=== PATIENT | female | born 1990 | race Caucasian/White ===

== ENCOUNTER 2021-02-02 10:11 | Emergency (ER) | payer OTHER, SELFPAY ==
--- NOTE | ~2021-02-02 | XR_ITS ---
EXAMINATION: XR chest 1V portable DATE: 02/02/2021 11:39 INDICATION: Chest pain. Anxiety. TECHNIQUE: A single frontal view of the chest was obtained. COMPARISON: Chest 2 views 05/09/2011, CT abdomen and pelvis 07/20/2015 FINDINGS: The chest demonstrates clear lungs without pneumonia, pleural effusion, or pneumothorax. Th e heart size is normal. IMPRESSION: 1. No acute cardiopulmonary disease. Reviewed, dictated and finalized at location A. [employer]
[2021-02-02 10:21] VITALS: BP 129/75; PULSE 107; RESP 18; TEMP 36.7; O2SAT 100
--- NOTE | 2021-02-02 11:19 | ED.GENADULT ---
HPI - General Adult General Chief complaint: Anxiety Stated complaint: anxiety attack Time Seen by Provider: 02/02/21 10:28 Source: patient Mode of arrival: ambulatory Limitations: no limitations History of Present Illness HPI narrative: Patient a 30-year-old female who presents with chest tightness and anxiety that have been present since the weekend patient with longstanding history of anxiety patient has as needed anxiety medicine that she rarely takes. Patient on arrival is very anxious and tearful. Patient denies sick contacts URI symptoms or other complaints. I will Related Data Home Medications Medication Instructions Recorded Confirmed oxybutynin chloride 02/02/21 02/02/21 Allergies Allergy/AdvReac Type Severity Reaction Status Date / Time No Known Allergies Allergy Verified 02/02/21 10:26 Review of Systems Review of Systems: All systems reviewed & are unremarkable except as noted in HPI and below PMFSH Past Medical History Medical History Anxiety Family History Family History (Updated 06/29/16 @ 23:19 by DOCTOR UNKNOWN) Father Hypertension Family history of diabetes mellitus in first degree relative Social History Social History Second hand tobacco smoke exposure: Yes Alcohol intake: current Gender identity (if verbalized by the patient): Female Exam Narrative: Exam Narrative: GENERAL: Well-appearing, well-nourished, and in no acute distress. HEAD: Normocephalic, atraumatic. EYES: PERRLA and EOMI. ENT: Nares clear, no rhinorrhea or epistaxis. Mucous membranes moist. CHEST: Clear to auscultation. No respiratory distress. No wheezes rales or rhonchi HEART: Regular rate and rhythm. No murmur heard. Normal peripheral pulses. ABDOMEN: Soft, nontender, nondistended EXTREMITIES: Normal range of motion. No edema. SKIN: Warm, dry, no rash. NEURO: No focal deficits. Alert and oriented x3. PSYCH: Acutely anxious Course Course Emergency Course: Patient in the room no distress aware of case findings treatment plan has close follow-up with primary care will be discharged home with mother with plans for addressing her anxiety patient was reassured and evaluated with no high risk changes felt appropriate for outpatient reevaluation provided with reasons to return ABCs intact vital signs stable Vital Signs Vital signs: Vital Signs Temperature 98.1 F 02/02/21 10:21 Pulse Rate 107 H 02/02/21 10:21 Respiratory Rate 18 02/02/21 10:21 Blood Pressure 129/75 02/02/21 10:21 Pulse Oximetry 100 02/02/21 10:21 Temperature 98.1 F 02/02/21 10:21 Pulse Rate 107 H 02/02/21 10:21 Respiratory Rate 18 02/02/21 10:21 Blood Pressure 129/75 02/02/21 10:21 Pulse Oximetry 100 02/02/21 10:21 Medical Decision Making MDM Narrative Medical decision making narrative: Patient room no distress will be discharged home Vital Signs Vital Signs: Vital Signs Temperature 98.1 F 02/02/21 10:21 Pulse Rate 107 H 02/02/21 10:21 Respiratory Rate 18 02/02/21 10:21 Blood Pressure 129/75 02/02/21 10:21 Pulse Oximetry 100 02/02/21 10:21 Temperature 98.1 F 02/02/21 10:21 Pulse Rate 107 H 02/02/21 10:21 Respiratory Rate 18 02/02/21 10:21 Blood Pressure 129/75 02/02/21 10:21 Pulse Oximetry 100 02/02/21 10:21 Lab Data Labs: Lab Results 02/02/21 Range/Units 11:22 Urine Color Yellow (Yellow) Urine Appearance Cloudy H (Clear) Urine pH 5.0 (5.0-9.0) Ur Specific Al[place] 1.031 (1.001-1.035) Urine Protein 2+ H (Negative) mg/dL Urine Glucose (UA) Negative (Negative) mg/dL Urine Ketones 2+ H (Negative) mg/dL Ur Blood (Man) Negative (Negative) Urine Nitrate Negative (Negative) Urine Bilirubin Negative (Negative) Urine Urobilinogen Negative (<2.0) mg/dL Leukocyte Esterase Rfl Trace H (Negative)
[2021-02-02] MEDS: LORazepam (*CRX) 1 MG TABLET PO (11:20)
[2021-02-02 11:44] LABS: Add Urine Microscopic? YES; Appearance Urine Cloudy (Clear); Bilirubin Urine Negative (Negative); Blood Urine Negative (Negative); Color Urine Yellow (Yellow); Glucose Urine UA Negative (Negative); Ketones Urine 2+ mg/dL (Negative); Leukocyte Esterase Ur Trace LEU/UL (Negative); Mucus Urine Heavy /lpf; Nitrate Urine Negative (Negative); Protein Urine 2+ mg/dL (Negative); Squamous Epithelial Cell Urine Many /hpf (Few); Urobilinogen Urine Negative mg/dL (<2.0); WBC Urine 0-3 /hpf
[2021-02-02 11:50] LABS: Specific Grav Ur 1.031 (1.001-1.035)
== END 2021-02-02 13:00 | disposition home or self-care (01) ==
PROVIDERS: Emergency Medicine Emergency Medical Services; Emergency Provider Emergency Medicine; PCP Family Medicine
DX: F41.9 Anxiety disorder, unspecified (principal); Z77.22 Contact with and (suspected) exposure to environmental tobacco smoke (acute) (chronic)
CPT/HCPCS: 71045; 81001; 81025; 99283; A9270

== ENCOUNTER 2025-03-09 10:05 | Outpatient (CLI) | payer OTHER, SELFPAY ==
--- NOTE | ~2025-03-09 | MMUS_ITS ---
EXAMINATION: US breast BI complete, MM diagnostic wilfred BI w kenny HISTORY: Dense breasts. TECHNIQUE: Additional 3-D tomosynthesis images of the breasts were performed and synthetic 2-D images were generated. CAD analysis was submitted and interpreted. High resolution bilateral complete breas t ultrasound was performed. COMPARISON: 01/16/2024 BREAST PARENCHYMAL COMPOSITION: Dense: The breasts are extremely dense, which lowers the sensitivity of mammography. FINDINGS: MAMMOGRAPHIC FINDINGS: There are no suspicious masses, calcifications or architectural distortion in either breast to sugges t malignancy. There is a tissue marker in the upper outer quadrant of the right breast, middle third. ULTRASOUND: Complete US of all 4 quadrants of the breast/s and retroareolar region was reviewed. Right breast: At 1:00, 2 cm from the nipple there is an oval circumscribed 11 mm hypoechoic mass with out internal vascularity or posterior features. At 2:00, 3 cm from the nipple there is a septated com plicated 8 mm cyst. At 9:00, 1 cm from the nipple there is 2 mm cyst. Left breast: At 1:00, 1 cm from the nipple there is a heterogeneous hypoechoic oval solid parallel or iented 4 mm mass without posterior features or internal vascularity. At 9:00, 4 cm from the nipple th ere is a 3 mm cyst. At 9:00, 3 cm from the nipple there is a cluster of cysts. IMPRESSION: 1. Probable benign bilateral breast masses identified by ultrasound. 2. Recommend 6 month follow-up limited bilateral breast ultrasound BI-RADS category 3, probably benign findings. Reviewed, dictated and finalized at location A. IMPRESSION: 1. Probable benign bilateral breast masses identified by ultrasound. 2. Recommend 6 month follow-up limited bilateral breast ultrasound BI-RADS category 3, probably benign findings.
--- OUTSIDE RECORDS SUMMARY | 2025-03-09 11:13 | XMS_ITS | Clinical Summary ---
Author Organization [facility] Address [address] [place] [address] Care Team Providers Care Research [facility] Director Name Role Phone Teresa Del Rio MD Primary Care Provider + Allergies No known active allergies Medications ondansetron 4 MG tabletIndicatio ns:Nausea Take 1-2 tablets every 6-8 hours as needed for nausea 30 tablet 2 1 Active Additional Information Patient not taking.Reported on 12/25/2023 ALPRAZolam (XANAX) 0.25 MG tabletIndicatio ns:Anxiety Take 1 tablet (0.25 mg total) by mouth 3 (three) times daily as needed. 30 tablet 1 3 Active NON FORMULARY Occasionally takes oshwaganda (sp?) Active oxybutynin (DITROPAN) 5 MG tabletIndicatio ns:Hyperhidrosi s Take 1 tablet (5 mg total) by mouth 2 (two) times daily. 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 Resolved Problems Problem Noted Date Diagnosed Date Resolved Date Cervical cancer screening 05/07/2018 Flu vaccine need 01/14/2017 08/12/2020 Encounter for preventive health examination 01/03/2017 08/12/2020 Immunizations Name Administration Dates Next Due Influenza (Generic) 01/14/2017 Influenza Adult (Generic) 01/14/2017 MODERNA COVID-19 (12+) MRNA, LNP-S, PF, 100 MCG/ 0.5 ML DOSE 03/28/2021,02/28/2021 Pneumococcal (Pneumovax 23) 05/07/2018 Tdap (Generic) 01/14/2017 Family History Medical History Relation Comments Hypertension Father Cancer Maternal Uncle 1 Skin cancer Maternal Uncle 2 in his 20s Skin cancer Maternal Uncle 3 in his 50s Relation Status Comments Father Maternal Uncle 1 Maternal Uncle 2 Alive Maternal Uncle 3 Alive Social History Tobacco Use Types Packs/Day Years Used Date Smoking Tobacco: Every Day Cigarettes 0.5 12 Smokeless Tobacco: Never Tobacco Cessation:Ready to Q uit: Not Asked; Counseling Given: Yes Comments:counseling by Dr Fuentes Alcohol Use Standard Drinks/Week Comments Not Currently 0 (1 standard drink = 0.6 oz pur e alcohol) rarely Comments No Sex and Gender Information Value Date Recorded Sex Assigned at Not on file Legal Sex Female 9:15 PM CDT Gender Identity Not on file Sexual Orientation Not on file Last Filed Vital Signs Vital Sign Reading Time Taken Comments Blood Pressure 124/80 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 Pulse 83 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 Temperature 36.6 C (97.9 F) 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 Respiratory Rate 16 03/06/2023 8:35 AM CDT Oxygen Saturation 98% 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 Inhaled Oxygen Concentration - - Weight 57.2 kg (126 lb) 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 Height 167.6 cm (5' 6 ) 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 Body Mass Index 20.34 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 Plan of Treatment Health Maintenance Due Date Last Done Comments Hepatitis B Vaccines (1 of 3 - 19+ 3-dose series) 2007 Pneumococcal Vaccine: Pediatrics (0 to 5 Years) and At-Risk Patients (6 to 64 Years) (2 of 2 - PCV) 05/07/2019 05/07/2018 Cervical Cancer Screening Pap Smear (Age 30 to 64) Every 3 Years 02/14/2024 02/13/2021 Annual Physical 03/06/2024 03/06/2023, 01/31, 02/13/2021, Additional history exists COVID-19 Vaccine ( season) 2024 03/28/2021, 02/28/2021 PHQ-2 (Physician [place]) 12/02/2024 Cervical Cancer Screening Pap with HPV Testing (Age 30 to 64) Every 5 Years 02/13/2026 02/13/2021 Cervical Cancer Screening with HPV 02/13/2026 DTaP, Tdap and Td Vaccines (2 - Td or Tdap) 01/14/2027 01/14/2017 Hepatitis C Completed 07/17/2021 HPV Vaccines Aged Out No longer eligi ble based on patient's age to complete this topic Meningococcal B Vaccine Aged Out No l onger eligible based on patient's age to complete this topic Meningococcal Vaccine Aged Out No triny robert eligible based on patient's age to complete this topic RSV Immunizations Under 20 Months Aged Out No longer eligible based on patient's age to complete this topic Procedures Procedure Name Priority Date/Time Associated Diagnosis Comments HEPATITIS C ANTIBODY W/RFX TO HCV RNA Routine 07/17/2021 11:15 AM CDT Need for hepatitis C screening test HPV MRNA E6/E7 W/ RFLX GENOTYPES Routine 02/13/2021 1:33 PM CDT CYTOPATH CERV/VAG THIN LAYER Routine 02/13/2021 1:33 PM CDT Encounter for Papanicolaou smear for cervical cancer screening from Last 3 Months or Most Recently Relevant to Health Maintenance Results * HEPATITIS C ANTIBODY W/RFX TO HCV RNA ([facility] ONLY) (07/17/2021 11:15 AM CDT) HEPATITIS C AB NON-REACTI VE NON-REACT JAN [facility] SIGNAL TO CUTOFF 0.01 <[address] [facility] Comment: HCV antibody was non-reactive. There is no laboratory evidence of HCV infection. In most cases, no further action is required. However, if recent HCV exposure is suspected, a test for HCV RNA (test code 72440) is suggested. For additional information please refer to http://education.[employer]/faq/OWT45e3 (This link is being provided for informational/ educational purposes only.) 07/17/2021 11:1 5 AM CDT 07/18/2021 7:50 AM CDT Trev Fuentes MD LABORATORY Final Res ult Performing Organization Address [facility]/ZIP Co de Phone Number [facility] [place] [facility] [address] [place] [address] * HPV MRNA E6/E7 W/ RFLX GENOTYPES (02/13/2021 1:33 PM CDT) Pathologist [facility] HPV MRNA E6/E7 Not Detected Not Detected [facility] [place] Comment: Methodology: Steam Setter-Mediated Amplification This assay detects E6/E7 viral messenger RNA (mRNA) from 14 high-risk HPV types (16,18,31,33,35,39,45,51,52,56,58,59,66,68). The analytical performance characteristics of this assay have been determined by [facility]. The modifications have not been cleared or approved by the FDA. This assay has been validated pursuant to the CLIA regulations and is used for clinical purposes. For additional information, please refer to http://Dealflicks.[employer]/faq/UEG247v8 (This link if provided for information/ educational purposes only.) 02/13/2021 1:33 PM CDT 02/14/2021 7:16 AM CDT Trev Fuentes MD PATHOLOGY/CYTOLOGY ORDERA BLES Final Result Performing Organization Address [facility]/ZIP Co de Phone Number [facility] - [place]O [facility] [address] [place] [address] * Cytopath Cerv/Vag Thin Layer (02/13/2021 1:33 PM CDT) Pathologist [facility] CLINICAL INFORMATION: REGULAR MENSES [facility] Clinical Information: 2 WEEKS AGO [facility] Date of Last Pap INFORMATION NOT PROVIDED [facility] Previous Biopsy? INFORMATION NOT PROVIDED [facility] SOURCE (QST) Cervix, Endocervix [facility] STATEMENT OF ADEQUACY: [facility] Comment: Satisfactory for evaluation. Endocervical/transformation zone component present. PAP INTERPRETATION/RESU LTS Negative for intraepithelial lesion or malignancy. [facility] COMMENT: Tip of collection device in vial [facility] SOLDERER [employer]REL RIBS [facility] Comment: JACK, CT(ASCP) CT screening location: [place] [address] [address] [place] [id number] COMMENT: [facility] Comment: EXPLANATORY NOTE: The Pap is a screening test for cervical cancer. It is not a diagnostic test and is subject to false negative and false positive results. It is most reliable when a satisfactory sample, regularly obtained, is submitted with relevant clinical findings and history, and when the Pap result is evaluated along with historic and current clinical information. 02/13/2021 1:33 PM CDT 02/14/2021 7:16 AM CDT Trev Fuentes MD PATHOLOGY/CYTOLOGY ORDERA BLES Final Result [facility] - [place] ORDERS [facility] [address] [address] [place] [id number] from Last 3 Months or Most Recently Relevant to Health Maintenance Insurance [place] Care Teams Research Center Director Relationship Specialty Start Date End Date Teresa Del Rio MD [address] [address] PCP - General FAMILY PRACTICE 09/18/24
== END 2025-03-09 10:06 | disposition home or self-care (01) ==
LOC: ANHIMG 10:06
PROVIDERS: PCP Physician Assistant; Visit Provider Physician Assistant
DX: R92.332 Mammographic heterogeneous density, left breast (principal); R92.8 Other abnormal and inconclusive findings on diagnostic imaging of breast
CPT/HCPCS: 76641; 77062; 77066; G0279

== ENCOUNTER 2025-03-11 10:27 | Emergency (ER) | payer OTHER, SELFPAY ==
--- NOTE | 2025-03-11 10:29 | ED_ITS ---
HPI - Eye Problem General Chief complaint: Eye Problems Stated complaint: left eye red,discharge Time Seen by Provider: 03/11/25 10:28 Source: patient Mode of arrival: ambulatory Limitations: no limitations History of Present Illness HPI Narrative: Ivon is a 34-year-old female patient presenting to the clinic today with complaints of left eye redness and discharge x1 day. She reports she woke up this morning with her eye matted shut. States that is goopy, red, and itchy. Works in a long term setting. Denies any URI symptoms. Denies any visual changes. Related Data Home Medications ?Medication ?Instructions ?Recorded ?Confirmed ?Last Taken ?Type oxybutynin chloride 5 mg tablet 02/02/21 02/02/21 Unknown History Allergies Allergy/AdvReac Type Severity Reaction Status Date / Time No Known Allergies Allergy Verified 03/11/25 10:39 Review of Systems Review of Systems: Pertinent positives per HPI. Patient denies any fever, chills, rash, headache, visual changes, dizziness, cough, runny nose, sore throat, shortness of breath, chest pain, palpitations, nausea, vomiting, diarrhea, constipation, abdominal pain, or any urinary issues. PMFSH Past Medical History Medical History Anxiety Family History Family History Father Hypertension Family history of diabetes mellitus in first degree relative Social History Social History Second hand tobacco smoke exposure: Yes Alcohol intake: current Gender identity (if verbalized by the patient): Female Comments At the time of my signature, I reviewed and agree with the nursing past medical, surgical, social, and family history. There is no relevant family history pertinent to the patient complaint. Exam Narrative: General: Well-developed, well nourished, in no apparent distress Head: Normocephalic, atraumatic Eyes: Pupils equally round and reactive to light bilaterally, EOM intact, right sclera and conjunctive clear, no discharge, lids normal, left sclera and conjunctiva injected with yellow mucopurulent discharge Ears: TMs intact and clear, ear canals clear, no drainage, grossly hearing normal. Nose: Nares patent, no discharge, no inflammation, no sinus tenderness. Mouth: Oropharynx without lesions or masses, good dentition, MMM. Neck: Supple, trachea midline, no enlargement of anterior or posterior cervical nodes, no thyroid masses or goiter palpable. Cardio: Regular rate and rhythm, s1 and s2 normal, no murmur appreciated. Resp: Clear to auscultation bilaterally anteriorly and posteriorly, no rhonchi, rales, wheezing or rubs Course Course Emergency Course: Portions of this record may have been created with voice recognition software. Level of Care: Express Care Visit Vital Signs Vital signs: Vital Signs Temperature 36.7 C 03/11/25 10:36 Pulse Rate 77 03/11/25 10:36 Respiratory Rate 14 03/11/25 10:36 Blood Pressure 119/70 03/11/25 10:36 Pulse Oximetry 100 03/11/25 10:36 Oxygen Delivery Room Air 03/11/25 10:36 Temperature 36.7 C 03/11/25 10:36 Pulse Rate 77 03/11/25 10:36 Respiratory Rate 14 03/11/25 10:36 Blood Pressure 119/70 03/11/25 10:36 Pulse Oximetry 100 03/11/25 10:36 Oxygen Delivery Room Air 03/11/25 10:36 Vital signs reviewed MDM - Eye Problem MDM Narrative Medical decision making narrative: At the time of visit patient is resting comfortably on the exam table. Patient appears to be nontoxic. Plan: I suspect patient has left acute conjunctivitis. Prescription for tobramycin eyedrops was sent to the pharmacy. Supportive measures were discussed with the patient and they voiced understanding discharge instructions and agrees to treatment plan. Return precautions reviewed Differential Diagnosis Differential diagnosis: Likely corneal abrasion, conjunctivitis, acute iritis, hyphema, periorbital cellulitis, subconjunctival hemorrhage, glaucoma, corneal ulcer and ruptured globe Discharge Plan Discharge Clinical Impression: Acute conjunctivitis of left eye Qualifiers: Acute conjunctivitis type: bacterial Qualified Code(s): H10.32 - Unspecified acute conjunctivitis, left eye Patient Disposition: Home Condition: Stable Instructions: Antibiotic Form, Conjunctivitis (ED) Additional Instructions: Conjunctivitis is considered contagious for 24 hours while on the antibiotic. Practice good hand washing techniques Avoid touching eyes Instill eyedrops as prescribed May use warm moist washcloth to help remove eye discharge If eyes are matted shut-do not pry eyes open-use a warm moist cloth to loosen matting and wipe matter away from eye May take Tylenol/Motrin as needed for pain or fever May take Benadryl as needed for itching Follow-up with your PCP in 3-5 days if symptoms persist or sooner if they worsen Go to the emergency room if you develop any fever that is not controlled by Tylenol or Motrin, loss of vision, eye pain, increase eye swelling,visual changes, headache, confusion, lethargy, weakness, chest pain, or shortness of breath. Patient Language: Tamazight Prescriptions: New tobramycin 0.3 % drops 1 drp LEFT EYE Q4H 7 Days Qty: 5 0RF No Action oxybutynin chloride 5 mg tablet Follow-up/Referrals: Sandrine,WILVER Gilbert [Primary Care Provider] - Time of Disposition: 10:40 Quality NIHSS Nursing Documentation ED NIHSS nursing documentation: reviewed/agree
[2025-03-11 10:36] VITALS: BP 119/70; PULSE 77; RESP 14; TEMP 36.7; O2SAT 100
== END 2025-03-11 10:46 | disposition home or self-care (01) ==
PROVIDERS: Emergency Provider Nurse Practitioner Family; PCP Physician Assistant
DX: H10.32 Unspecified acute conjunctivitis, left eye (principal)
CPT/HCPCS: 99213; G0463

== ENCOUNTER 2025-05-10 15:03 | Emergency (ER) | payer OTHER, SELFPAY ==
[2025-05-10 15:11] VITALS: BP 105/64; PULSE 67; RESP 12; TEMP 36.5; O2SAT 100
--- NOTE | 2025-05-10 15:30 | ED.BACK ---
HPI - Back Pain/Injury General Chief Complaint: Back Pain/Injury Stated Complaint: back pain Time Seen by Provider: 05/10/25 15:30 Source: patient, RN notes reviewed and old records reviewed Mode of arrival: ambulatory Limitations: no limitations History of Present Illness HPI Narrative: 34-year-old female presents to the [facility] with 5 day history of low back pain. Patient states that she twisted wrong and felt a pop. States when she lays down it feels better, standing, twisting and moving makes it worse. Has taken ibuprofen. Denies any retention of bowel or bladder. Denies any loss of bowel bladder. No urinary symptoms. No CVA tenderness. Denies abdominal pain.. Walks with a normal gait. No numbness or tingling in extremities. Onset (ago): day(s) (5) Related Data Home Medications ?Medication ?Instructions ?Recorded ?Confirmed ?Last Taken ?Type oxybutynin chloride 5 mg tablet 02/02/21 02/02/21 Unknown History Allergies Allergy/AdvReac Type Severity Reaction Status Date / Time No Known Allergies Allergy Verified 05/10/25 15:21 Review of Systems Review of Systems: All systems reviewed & are unremarkable except as noted in HPI and below Constitutional: Constitutional: Reports no additional constitutional complaints ENT: Reports system reviewed and no additional complaints, except as documented Cardiovascular: Cardiovascular: Reports no additional cardiovascular complaints, Denies chest pain and Denies dyspnea Respiratory: Respiratory: Reports no additional respiratory complaints, Denies chest congestion, Denies cough and Denies dyspnea Musculoskeletal: Musculoskeletal: Reports as per HPI Integumentary/Breasts: Skin/Breast: Reports system reviewed and no additional complaints, except as [facility]u [facility] Past Medical History Medical History Anxiety Family History Family History Father Hypertension Family history of diabetes mellitus in first degree relative Social History Social History Second hand tobacco smoke exposure: Yes Alcohol intake: current Gender identity (if verbalized by the patient): Female Comments At the time of my signature, I reviewed and agree with the nursing past medical, surgical, social, and family history. There is no relevant family history pertinent to the patient complaint. Exam Const: General: cooperative, healthy appearing, comfortable, no acute distress, well developed, alert and well nourished Nutritional Appearance: well nourished Orientation/consciousness: patient oriented x3 Limitations: no limitations HENMT: Head: normal to inspection Eyes: General: appearance normal, both eyes and all related structures Alignment and Position: alignment normal Neck: Neck: normal visual inspection, full ROM, no lymphadenopathy and no meningeal signs Chest: Chest palpation & inspection: normal inspection of the chest Resp: Effort & Inspection: normal respiratory effort and able to speak in complete sentences Auscultation: clear to auscultation bilaterally, no crackles, no rales, no rhonchi and no wheezes Cardio: Rate: regular rate GI: GI Palp: No abdominal tenderness : General: Yes no CVA tenderness Back/Spine/Pelvis: Back: No erythema, No warmth, No ecchymosis and back tenderness Cervical Spine: normal cervical lordosis, cervical ROM normal and No Cervical spine tenderness Thoracic/Lumbar Spine: paraspinal muscle tenderness bilaterally in the lower lumbar, No thoracic spinal tenderness and No lumbar spinal tenderness Skin: General skin exam: normal color and no rashes or lesions noted Rashes: no rashes Neuro: General: patient oriented x3, gait normal, moves all extremities and no meningeal signs Cognition (Neuro): normal cognition Speech: normal speech Gait exam (Neuro): Normal gait present Extrem: General: normal to inspection, full ROM, capillary refill normal and normal gait Psych: Appearance: grossly normal and well kempt Mental Status: mental status grossly normal Speech and movement: Normal speech and movement present and Clear speech present Affect: normal affect Attitude: cooperative Course Course Level of Care: Express Care Visit Vital Signs Vital signs: Vital Signs Temperature 97.7 F 05/10/25 15:11 Pulse Rate 67 05/10/25 15:11 Respiratory Rate 12 05/10/25 15:11 Blood Pressure 105/64 05/10/25 15:11 Pulse Oximetry 100 05/10/25 15:11 Oxygen Delivery Room Air 05/10/25 15:11 Temperature 97.7 F 05/10/25 15:11 Pulse Rate 67 05/10/25 15:11 Respiratory Rate 12 05/10/25 15:11 Blood Pressure 105/64 05/10/25 15:11 Pulse Oximetry 100 05/10/25 15:11 Oxygen Delivery Room Air 05/10/25 15:11 Reviewed MDM - Back Pain/Injury MDM Narrative Medical decision making narrative: Patient sitting in exam room. Patient is nontoxic, vitals are stable. Patient presents 5 day history of low back pain. Patient denies any loss of bowel or bladder. No midline tenderness. Walking with normal gait. Discussed doing an x-ray. But without injury x-rays was only look at bone. Discussed signs and symptoms proceed to the emergency room and stressed importance of following up with primary care provider Patient appropriate for outpatient treatment with close follow-up Discharge instructions reviewed with patient, as well as provided in writing per nursing staff. The instructions also include specific and strict return/GO TO THE ER as well as f/u information. All questions have been answered, and the patient deny any further questions with discharge and discharge plan. Some parts of this dictation were generated by voice recognition software and may contain typographical and/or grammatical inaccuracies. Differential Diagnosis Differential diagnosis: Likely lumbar radiculopathy, sciatica, strain of lumbar region, renal colic, pyelonephritis and thoracic back pain Critical Care Time Critical Care Time Critical Care Time: No Discharge Plan Discharge Clinical Impression: Strain of lumbar region Qualifiers: Encounter type: initial encounter Qualified Code(s): S39.012A - Strain of muscle, fascia and tendon of lower back, initial encounter Patient Disposition: Home Condition: Stable Instructions: Low Back Strain (ED), Lower Back Exercises (ED) Additional Instructions: Take ibuprofen as directed to decrease inflammation and to help pain. Take Baclofen (muscle relaxer) as directed. Do not drink, drive, operate machinery, or do anything dangerous while taking this medication Exercise:Combine aerobic exercise, like walking or swimming, with specific exercises to keep the muscles in your back and abdomen strong and flexible. Proper Lifting:Be sure to lift heavy items with your legs, not your back. Do not bend over to pick something up. Keep your back straight and bend at your knees. Weight:Maintain a healthy weight. Being overweight puts added stress on your lower back. Avoid Smoking:Both the smoke and the nicotine cause your spine to age faster than normal. Proper Posture:Good posture is important for avoiding future problems. A therapist can teach you how to safely stand, sit, and lift. Use warm moist heat to help with pain. Using topical such as Biofreeze, Jose-Cano or Aspercreme can also help Follow up with Primary provider in 2-3 days, This may become a chronic condition and they will be the one to help manage your pain and order additional testing. Go to the nearest ER if you develop problems with bladder/bowel function, weakness or loss of feeling in one or both of your legs. Patient Language: Mont[place]erratian Prescriptions: New baclofen 10 mg tablet 10 mg PO TID PRN (Reason: muscle pain) Qty: 10 0RF ibuprofen 600 mg tablet 600 mg PO TID PRN (Reason: fever or pain) Qty: 30 0RF lidocaine [DermacinRx Lidocan] 5 % adhesive patch,medicated 1 patch topical DAILY Qty: 15 0RF Rx Instructions: leave on most painful area for up to 12 hrs No Action oxybutynin chloride 5 mg tablet Follow-up/Referrals: UNKNOWN,DOCTOR [Primary Care Provider] - Stand Alone Forms: Work/School Release IP Time of Disposition: 15:48
== END 2025-05-10 15:54 | disposition home or self-care (01) ==
PROVIDERS: Emergency Provider Nurse Practitioner
DX: S39.012A Strain of muscle, fascia and tendon of lower back, initial encounter (principal); X50.1XXA Overexertion from prolonged static or awkward postures, initial encounter
CPT/HCPCS: 99213; G0463

== ENCOUNTER 2025-05-19 18:15 | Emergency (ER) | payer OTHER, SELFPAY ==
--- NOTE | 2025-05-19 18:16 | ED_ITS ---
HPI - Back Pain/Injury General Chief Complaint: Back Pain/Injury Stated Complaint: back pain Time Seen by Provider: 05/19/25 18:16 Source: patient Mode of arrival: ambulatory Limitations: no limitations History of Present Illness HPI Narrative: Patient is a 35-year-old female who presents with low back pain. Patient was initially here 9 days ago with initial injury being 14 days ago. Patient states she is improving with the ibuprofen, baclofen and lidocaine patches that were given to her last visit. Patient states she tripped over her dog today re- injuring back. 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 Denies any numbness, tingling or weakness down her extremities. Denies any loss of bowel or bladder. Requesting work note. Related Data Home Medications ?Medication ?Instructions ?Recorded ?Confirmed ?Last Taken ?Type oxybutynin chloride 5 mg tablet 02/02/21 02/02/21 Unknown History Allergies Allergy/AdvReac Type Severity Reaction Status Date / Time No Known Allergies Allergy Verified 05/10/25 15:21 Review of Systems Review of Systems: All systems reviewed & are unremarkable except as noted in HPI and below Constitutional: Constitutional: Denies body ache(s), Denies chills, Denies fatigue, Denies fever(s), Denies headache(s), Denies malaise and Denies weakness Eyes: Eyes: Denies blurry vision, Denies irritation and Denies loss of vision ENT: Denies otalgia, Denies headache(s), Denies nasal discharge, Denies sinus pain and Denies sore throat Cardiovascular: Cardiovascular: Denies chest pain, Denies irregular heart rhythm and Denies dyspnea Respiratory: Respiratory: Denies dyspnea Gastrointestinal: Gastrointestinal: Denies abdominal pain, Denies melena, Denies hematochezia, Denies diarrhea, Denies nausea and Denies vomiting Musculoskeletal: Musculoskeletal: Reports back pain, Denies myalgias and Denies arthralgias Integumentary/Breasts: Skin/Breast: Denies pruritus and Denies rash Neurologic: Denies headache(s), Denies loss of vision and Denies weakness Psychiatric: Psychiatric: Reports no additional psychiatric complaints Endocrine: Endocrine: Denies fatigue PMFSH Past Medical History Medical History Anxiety Family History Family History Father Hypertension Family history of diabetes mellitus in first degree relative Social History Social History Second hand tobacco smoke exposure: Yes Alcohol intake: current Gender identity (if verbalized by the patient): Female Comments At time of signature, agree with nursing past medical, surgical, social and family history. There is no relevant family history pertinent to the presenting complaint. Exam Const: General: cooperative, healthy appearing, comfortable, no acute distress and well nourished Nutritional Appearance: well nourished Orientation/ consciousness: patient oriented x3 Limitations: no limitations HENMT: Head: normal to inspection, normocephalic and atraumatic Ears: hearing grossly normal bilaterally and external ears normal Face/Nose/Sinus: Normal external nose present, normal facial exam and face symmetric Face and sinus: normal facial exam and face symmetric Mouth: Yes lip normal Eyes: General: appearance normal, both eyes and all related structures Alignment and Position: alignment normal and position normal Periorbital: periorbital findings normal Eyelids: eyelids normal Pupils: Equal, round and reactive pupils present EOM: EOMs intact bilaterally Neck: Neck: normal visual inspection, full ROM and supple Chest: Chest palpation & inspection: normal inspection of the chest Resp: Effort & Inspection: normal respiratory effort and able to speak in complete sentences Auscultation: clear to auscultation bilaterally Cardio: Rate: regular rate Rhythm: regular rhythm Heart sounds: S1 normal heart sound present and S2 normal heart sound present GI: Inspection: normal to inspection Back/Spine/Pelvis: Back: no CVA tenderness Cervical Spine: normal cervical lordosis Thoracic/Lumbar Spine: thoracic and lumbar spine normal to inspection, straight leg raise negative bilaterally, paraspinal muscle tenderness bilaterally in the mid lumbar and in the lower lumbar, No thoracic spinal tenderness and No lumbar spinal tenderness Skin: General skin exam: normal color and no rashes or lesions noted Neuro: General: patient oriented x3 and moves all extremities Cranial nerves: Yes Equal, round and reactive pupils present Speech: normal speech Gait exam (Neuro): Normal gait present Extrem: General: normal to inspection, full ROM and no edema Psych: Appearance: grossly normal and well kempt Mental Status: mental status grossly normal Speech and movement: Normal speech and movement present Affect: normal affect Attitude: cooperative Thought process: Normal thought process present Course Course Emergency Course: Patient is aware of diagnosis, understands and agrees to treatment plan. Anticipatory guidance given. Patient agrees to follow-up as directed and is aware of reasons to seek care at the emergency department. Portions of this record may have been created with voice recognition software Level of Care: Express Care Visit Vital Signs Vital signs: Reviewed MDM - Back Pain/Injury MDM Narrative Medical decision making narrative: Pt well hydrated appearing, in no respiratory distress, hemodynamically stable. Recommend supportive care. The patient is stable at time of discharge the clinical impression was discussed and the patient was given the opportunity to ask questions, which were addressed as completely as possible given the information available at present. Anticipatory guidance and return to care precautions were discussed and the importance of primary care follow-up was stressed and encouraged. The patient voiced understanding of the plan, indications to return, and the need for follow-up. Exam findings show no acute concerns or changes Patient is appropriate for outpatient treatment and follow-up. Differential Diagnosis Differential diagnosis: Likely lumbar radiculopathy, sciatica and strain of lumbar region Medical Records Attestation: I reviewed the patient's medical records. Discharge Plan Discharge Clinical Impression: Strain of lumbar region Qualifiers: Encounter type: subsequent encounter Qualified Code(s): S39.012D - Strain of muscle, fascia and tendon of lower back, subsequent encounter Patient Disposition: Home Condition: Stable Instructions: Low Back Strain (ED), Lower Back Exercises (ED) Additional Instructions: Take Motrin 600-800mg every 6-8 hours with food for the next 2-3 days, take muscle relaxers every 8 hours as needed for muscle spasm. do not drive or make any important decisions while on this medication for it can make you drowsy For pain, you may take: Tylenol 650-1000mg by mouth every 4-6 hours. Do not exceed 4000mg in 24 hours. Advil (Ibuprofen) 600 mg by mouth every 6 hours. Do not exceed 2400mg in 24 hours. 8 AM: Tylenol 11 AM: Ibuprofen 2 PM: Tylenol 5 PM: Ibuprofen 8 PM: Tylenol 11 PM: Ibuprofen 2 AM: Tylenol 5 AM: Ibuprofen Exercise:Combine aerobic exercise, like walking or swimming, with specific exercises to keep the muscles in your back and abdomen strong and flexible.bed rest is not recommended. Proper Lifting:Be sure to lift heavy items with your legs, not your back. Do not bend over to pick something up. Keep your back straight and bend at your knees. Weight:Maintain a healthy weight. Being overweight puts added stress on your lower back. Avoid Smoking:Both the smoke and the nicotine cause your spine to age faster than normal. Proper Posture:Good posture is important for avoiding future problems. A therapist can teach you how to safely stand, sit, and lift. Use warm moist heat or ice to help with pain. Follow up with Primary provider in 2-3 days, This may become a chronic condition and they will be the one to help manage your pain and order additional testing. Follow-up with your doctor for further care and evaluation or seek ER if you develop problems with bladder/bowel function, weakness or loss of feeling in one or both of your legs. Patient Language: Kinyarwanda Prescriptions: No Action baclofen 10 mg tablet 10 mg PO TID PRN (Reason: muscle pain) Qty: 10 0RF ibuprofen 600 mg tablet 600 mg PO TID PRN (Reason: fever or pain) Qty: 30 0RF lidocaine [DermacinRx Lidocan] 5 % adhesive patch,medicated 1 patch topical DAILY Qty: 15 0RF Rx Instructions: leave on most painful area for up to 12 hrs oxybutynin chloride 5 mg tablet Follow-up/Referrals: UNKNOWN,DOCTOR [Primary Care Provider] - 3 Days Stand Alone Forms: Work/School Release IP Time of Disposition: 19:04
[2025-05-19 18:20] VITALS: BP 123/85; PULSE 91; RESP 14; TEMP 36.8; O2SAT 100
== END 2025-05-19 19:11 | disposition home or self-care (01) ==
PROVIDERS: Emergency Provider Nurse Practitioner Family
DX: S39.012A Strain of muscle, fascia and tendon of lower back, initial encounter (principal); W01.0XXA Fall on same level from slipping, tripping and stumbling without subsequent striking against object, initial encounter
CPT/HCPCS: 99212; G0463